=== PATIENT | male | born 1995 | race Asian ===

== ENCOUNTER 2022-10-04 08:22 | Emergency (ER) | payer OTHER ==
[~2022-10-04] VITALS: Ht 175.3 cm; Wt 79.5 kg
[2022-10-04] MEDS ORDERED: MORPHINE 4 MG/ML 1ML VIAL IV ONE (08:50)
[2022-10-04] MEDS ORDERED: ONDANSETRON 4MG 2ML VIAL IV ONE (08:50)
[2022-10-04] MEDS ORDERED: KETOROLAC 30 MG/ML 1ML VIAL IV ONE (10:20)
[2022-10-04] MEDS ORDERED: NAPR-837 PO (10:33)
[2022-10-04] MEDS ORDERED: METH-1164 PO (10:33)
[2022-10-04 10:42] VITALS: BP 117/62; TEMP 98; O2SAT 97
== END 2022-10-04 11:12 | disposition home or self-care (01) ==
LOC: M ED 08:22
DX: S33.5XXA Sprain of ligaments of lumbar spine, initial encounter (principal); S93.401A Sprain of unspecified ligament of right ankle, initial encounter; W19.XXXA Unspecified fall, initial encounter; Y99.1 Military activity; Y92.89 Other specified places as the place of occurrence of the external cause
CPT/HCPCS: 70450; 72125; 72128; 72131; 72190; 73610; 94760; 96374; 96375; 99284; J1885; J2405